=== PATIENT | female | born 1995 | race Caucasian/White ===

== ENCOUNTER 2017-02-11 02:45 | Emergency (ER) | payer OTHER ==
[2017-02-11 03:01] VITALS: BP 107/54; PULSE 94; TEMP 97.8; BMI 22.6
--- NOTE | 2017-02-11 03:23 | PDOC ---
History of Present Illness - General History Source: Patient Exam Limitations: No Limitations - History of Present Illness Initial Comments: 02/11/17 03:57 The patient is a 22 year old female with no significant PMH who presents to the emergency department with right sided groin and leg pain beginning approximately 1 month ago. The patient reports that she began to suddenly develop groin pain on her right side 3 weeks ago which is worsening and has begun to radiate down into her right leg. The patient reports being sometimes unable to sleep due to the groin pain. The patient denies regularly exercising but reports going to the gym for 2 days about 2 months ago. The patient states she works for the [employer] and is thus sitting for most of the day. The patient states that she went to her PCP in the last week and was prescribed Ibuprofen and Cyclobenzaprine. The patient denies taking any vitamin supplements. The patient denies chest pain, shortness of breath, headache and dizziness. Denies fever, chills, nausea, vomit, diarrhea and constipation. Denies dysuria, frequency, urgency and hematuria. Allergies: NKA Past surgical history: None reported. Social history: No reported cigarette, alcohol, or drug use. PCP: Dr. Paul <Nba Marino - Last Filed: 02/11/17 03:57> <Yolanda Siddiqi - Last Filed: 02/11/17 05:43> - General Chief Complaint: Pain Stated Complaint: LEG PAIN Time Seen by Provider: 02/11/17 03:10 Past History <Nba Marino - Last Filed: 02/11/17 03:57> - Suicide/Smoking/Psychosocial Hx Smoking History: Never smoked Have you smoked in the past 12 months: No Information on smoking cessation initiated: No Hx Alcohol Use: No Drug/Substance Use Hx: No <Yolanda Siddiqi - Last Filed: 02/11/17 05:43> - Past Medical History Allergies/Adverse Reactions: Allergies Allergy/AdvReac Type Severity Reaction Status Date / Time No Known Allergies Allergy Verified 02/11/17 03:01 Home Medications: Ambulatory Orders NK [No Known Home Medication] 02/11/17 Review of Systems - Review of Systems Able to Perform ROS?: Yes Comments:: 02/11/17 03:57 GENERAL/CONSTITUTIONAL: No fever or chills. No weakness. HEAD, EYES, EARS, NOSE AND THROAT: No change in vision. No ear pain or discharge. No sore throat. CARDIOVASCULAR: No chest pain or shortness of breath. RESPIRATORY: No cough, wheezing, or hemoptysis. GASTROINTESTINAL: No nausea, vomiting, diarrhea or constipation. GENITOURINARY: No dysuria, frequency, or change in urination. MUSCULOSKELETAL: (+) Right sided groin pain. (+) Right sided leg pain. No joint pain. No neck or back pain. SKIN: No rash NEUROLOGIC: No headache, vertigo, loss of consciousness, or change in strength/ sensation. ENDOCRINE: No increased thirst. No abnormal weight change. HEMATOLOGIC/LYMPHATIC: No anemia, easy bleeding, or history of blood clots. ALLERGIC/IMMUNOLOGIC: No hives or skin allergy. <Nba Marino - Last Filed: 02/11/17 03:57> *Physical Exam - Vital Signs Last Vital Signs Temp Pulse Resp BP Pulse Ox 97.8 F 94 H 20 107/54 100 02/11/17 02:59 02/11/17 02:59 02/11/17 02:59 02/11/17 02:59 02/11/17 02:59 - Physical Exam Comments: 02/11/17 03:59 GENERAL: Awake, alert, and fully oriented, in no acute distress HEAD: No signs of trauma EYES: PERRLA, EOMI, sclera anicteric, conjunctiva clear ENT: Auricles normal inspection, hearing grossly normal, nares patent, oropharynx clear without exudates. Moist mucosa NECK: Normal ROM, supple, no lymphadenopathy, JVD, or masses LUNGS: Breath sounds equal, clear to auscultation bilaterally. No wheezes, and no crackles HEART: Regular rate and rhythm, normal S1 and S2, no murmurs, rubs or gallops ABDOMEN: Soft, nontender, normoactive bowel sounds. No guarding, no rebound. No masses EXTREMITIES: (+) Limited RLE ROM due to pain. No edema. No clubbing or cyanosis. No cords, erythema, or tenderness NEUROLOGICAL: Cranial nerves II through XII grossly intact. Normal speech, normal gait. SKIN: Warm, Dry, normal turgor, no rashes or lesions noted. <Nba Marino - Last Filed: 02/11/17 03:57> - Vital Signs Last Vital Signs Temp Pulse Resp BP Pulse Ox 97.8 F 94 H 20 107/54 100 02/11/17 02:59 02/11/17 02:59 02/11/17 02:59 02/11/17 02:59 02/11/17 02:59 <Yolanda Siddiqi - Last Filed: 02/11/17 05:43> ED Treatment Course - LABORATORY CBC & Chemistry Diagram: 02/11/17 04:00 02/11/17 04:00 <Yolanda Siddiqi - Last Filed: 02/11/17 05:43> Medical Decision Making - Medical Decision Making 02/11/17 05:42 Patient Name: PK PEARL THIS IS A PRELIMINARY REPORT [facility] DATE OF SERVICE: 2017-02-11 05:18:45 IMAGES: [id number] EXAM: CT LUMBAR SPINE HISTORY: Right inner thigh pain COMPARISON: None. FINDINGS: The lumbar vertebrae are normally aligned. No fracture or destructive bone lesion. At L5-S1, there is a disc bulge with centrally herniated component. No other disc abnormalities are identified. Soft tissues are normal <Yolanda Siddiqi - Last Filed: 02/11/17 05:43> *DC/Admit/Observation/Transfer - Attestations Scribe Attestion: 02/11/17 04:00 Documentation prepared by Nba Marino, acting as medical device engineer for Yolanda Siddiqi MD. <Nba Marino - Last Filed: 02/11/17 03:57> - Discharge Dispostion Admit: No <Yolanda Siddiqi - Last Filed: 02/11/17 05:43> Diagnosis at time of Disposition: Muscle soreness, Thigh pain - Discharge Dispostion Disposition: HOME Condition at time of disposition: Stable - Referrals Referrals: Maeve Paul MD [Primary Care Provider] - - Patient Instructions Printed Discharge Instructions: DI for Leg Pain, DI for Musculoskeletal Pain - Post Discharge Activity
[2017-02-11 04:13] LABS: BASOPHIL 0.5 % (0-2.0); EOSINOPHIL 2.1 % (0-4.5); MCH 30.3 pg (25.7-33.7); MCHC 33.4 g/dl (32.0-36.0); MEAN CELL VOLUME 90.7 fl (80-96); MEAN PLT VOLUME 7.9 fl (7.5-11.1); NEUTROPHILS 58.2 % (42.8-82.8); PLATELET COUNT 266 K/MM3 (134-434); RDW 12.6 % (11.6-15.6); WHITE BLOOD COUNT 6.1 K/mm3 (4.0-10.0)
[2017-02-11 04:18] LABS: URINE APPEARANCE CLEAR; URINE BILIRUBIN NEGATIVE (NEGATIVE); URINE BLOOD 1+ (NEGATIVE); URINE COLOR LTYELLOW; URINE GLUCOSE (UA) NEGATIVE (NEGATIVE); URINE KETONE NEGATIVE (NEGATIVE); URINE NITRITE NEGATIVE (NEGATIVE); URINE PROTEIN NEGATIVE (NEGATIVE); URINE UROBILINOGEN NEGATIVE mg/dL (0.2-1.0)
[2017-02-11 04:37] LABS: ALBUMIN 3.9 g/dl (3.4-5.0); ALK PHOS 56 U/L (45-117); ANION GAP 8 (8-16); BILIRUBIN,TOTAL 0.5 mg/dL (0.2-1.0); CALCIUM 8.5 mg/dL (8.5-10.1); CO2 26 mmol/L (21-32); CREATININE 0.6 mg/dL (0.55-1.02); GLUCOSE,RANDOM 82 mg/dL (74-106); SGOT/AST 16 U/L (15-37); SGPT/ALT 24 U/L (12-78); TOT PROT 7.2 g/dl (6.4-8.2)
[2017-02-11 04:39] LABS: URINE BACTERIA RARE /hpf (NONE SEEN); URINE MUCUS RARE; URINE RBC 5; URINE WBC 3
[2017-02-11 04:42] LABS: CPK 161 IU/L (26-192)
[2017-02-11 12:34] LABS: URINE LEUK ESTERASE Negative (NEGATIVE)
== END 2017-02-11 06:53 | disposition home or self-care (01) ==
LOC: JER 02:45
DX: M79.1 Myalgia (principal); M79.604 Pain in right leg; R10.31 Right lower quadrant pain
CPT/HCPCS: 36415; 72131-TC; 73552-TC-RT; 80053; 81003; 81015; 82550; 82553; 84703; 85025; 85651; 99282-25

== ENCOUNTER 2019-10-19 18:34 | Emergency (ER) | payer OTHER ==
[2019-10-19 18:41] VITALS: TEMP 98.7; BMI 24.5
--- NOTE | 2019-10-19 18:42 | PDOC ---
Rapid Medical Evaluation Chief Complaint: Sore Throat Time Seen by Provider: 10/19/19 18:39 Medical Evaluation: Allergies Allergy/AdvReac Type Severity Reaction Status Date / Time No Known Allergies Allergy Verified 02/11/17 03:01 10/19/19 18:39 The patient is a 24 y/o F presents to the ER with sores to her vaginal area and a sore throat. She states the sores started 4 days ago. She endorses having a fever of 101 yesterday. She also notes her throat started to bother her two days ago. She states she noticed spots on the back of her throat. Denies diff swallowing. States took Tylenol two hours prior to arrival Exam: mildly erythematous tonsils. Defer exam Orders: strep; urine Pt to proceed to the ER for further evaluation Discharge Disposition - Diagnosis Vaginal pain - Referrals Referrals: Maeve Paul MD [Primary Care Provider] - - Patient Instructions - Post Discharge Activity
[2019-10-19 19:21] LABS: EPI CELLS >36 /uL (0-25.1); HCG,QUALITATIVE URINE Negative; HYALINE CASTS 5 /uL (0-3.1); PH,URINE 5.5 (5.0-8.0); URINE APPEARANCE CLOUDY; URINE BACTERIA 1671 /uL (0-1359); URINE BILIRUBIN NEGATIVE (NEGATIVE); URINE COLOR DK YELLOW; URINE GLUCOSE (UA) NEGATIVE (NEGATIVE); URINE KETONE 1+ (NEGATIVE); URINE LEUK ESTERASE 2+ (NEGATIVE); URINE NITRITE NEGATIVE (NEGATIVE); URINE PROTEIN 1+ (NEGATIVE); URINE RBC 48 /uL (0-23.9); URINE WBC 1503 /uL (0-25.8)
[2019-10-19] MEDS ORDERED: valACYclovir HCL 1000 MG TABLET PO ONE (19:52)
[2019-10-19] MEDS ORDERED: AZITHROMYCIN 500 MG TABLET PO ONE (20:00)
[2019-10-19] MEDS ORDERED: valACYclovir HCL 500 MG TABLET (FP) ONE ×2 (20:03→20:06)
[2019-10-19] MEDS ORDERED: LIDOCAINE HCL 1%, 10 MG/ML (20ML VIAL) ONE (20:04)
[2019-10-19] MEDS ORDERED: cefTRIAXone SODIUM 1 GM VIAL ONE ×2 (20:04→20:06)
[2019-10-19] MEDS ORDERED: AZITHROMYCIN 250 MG TABLET ONE ×2 (20:04→20:06)
--- NOTE | 2019-10-19 20:25 | PDOC ---
History of Present Illness - General Chief Complaint: Sore Throat Stated Complaint: SORETHROAT Time Seen by Provider: 10/19/19 18:39 History Source: Patient Exam Limitations: No Limitations - History of Present Illness Initial Comments: 10/19/19 20:18 Patient is a 24-year-old female with no past medical history here with complaints of vaginal and labial ulcers and sore throat x3 days. Patient states she went to [facility] and was using tampons thought it might be related to her tampons however the pain has persisted. Describes the pain as sharp [id number] 10 out of 10 pain in the vaginal area which was associated with fever yesterday. She reports white patches on her throat. She sexually active with one partner for the last several months without condoms, with vaginal and oral sex. PMD: Dr. Sandoval PMHX: as above PSOCHX: occ etoh, neg durg, cig ALL: NKDA GENERAL/CONSTITUTIONAL: [No fever or chills. No weakness. No weight change.] HEAD, EYES, EARS, NOSE AND THROAT: [No change in vision. No ear pain or discharge. No sore throat.] CARDIOVASCULAR: [No chest pain or shortness of breath.] RESPIRATORY: [No cough, wheezing, or hemoptysis.] GASTROINTESTINAL: [No nausea, vomiting, diarrhea or constipation. No rectal bleeding.] GENITOURINARY: [No dysuria, frequency, or change in urination.] MUSCULOSKELETAL: [No joint or muscle swelling or pain. No neck or back pain.] SKIN AND BREASTS: [No rash or easy bruising.] NEUROLOGIC: [No headache, vertigo, loss of consciousness, or loss of sensation.] PSYCHIATRIC: [No depression or anxiety.] ENDOCRINE: [No increased thirst. No abnormal weight change.] HEMATOLOGIC/LYMPHATIC: [No anemia, easy bleeding, or history of blood clots.] ALLERGIC/IMMUNOLOGIC: [No hives or skin allergy. No latex allergy.] GENERAL: [The patient is awake, alert, and fully oriented, in no acute distress.] HEAD: [Normal with no signs of trauma.] EYES: [Pupils equal, round and reactive to light, extraocular movements intact, sclera anicteric, conjunctiva clear.] ENT: [Ears normal, nares patent, oropharynx with exudates. Moist mucous membranes. NECK: [Normal range of motion, supple without lymphadenopathy, JVD, or masses.] LUNGS: [Breath sounds equal, clear to auscultation bilaterally. No wheezes, and no crackles.] HEART: [Regular rate and rhythm, normal S1 and S2 without murmur, rub.] ABDOMEN: [Soft, nontender, normoactive bowel sounds. No guarding, no rebound. No masses.] PELVIC: (+) Multi tender ulcerative lesions on the labia minora and in the vaginal vault. Small amount of thin yellow discharge in the vault EXTREMITIES: [Normal range of motion, no edema. No clubbing or cyanosis. No cords, erythema, or tenderness.] NEUROLOGICAL: [Cranial nerves II through XII grossly intact. Normal speech, normal gait.] PSYCH: [Normal mood, normal affect.] SKIN: [Warm, Dry, normal turgor, no rashes or lesions noted.] Past History - Medical History Allergies/Adverse Reactions: Allergies Allergy/AdvReac Type Severity Reaction Status Date / Time No Known Allergies Allergy Verified 10/19/19 18:41 Home Medications: Ambulatory Orders Valacyclovir HCl [Valtrex] 1,000 mg PO BID #14 tablet 10/19/19 COPD: No - Psycho-Social/Smoking History Smoking History: Never smoked Have you smoked in the past 12 months: No - Substance Abuse Hx (Audit-C & DAST Scrn) How often the patient has a drink containing alcohol: Never Score: In Men: 4 or > Positive; In Women: 3 or > Positive: 0 Screen Result (Pos requires Nsg. Audit-10AR): Negative *Physical Exam - Vital Signs Last Vital Signs Temp Pulse Resp BP Pulse Ox 98.7 F 102 H 18 105/71 99 10/19/19 18:39 10/19/19 18:39 10/19/19 18:39 10/19/19 18:39 10/19/19 18:39 ED Treatment Course - ADDITIONAL ORDERS Additional order review: Laboratory Results 10/19/19 19:00 Urine Color Dk yellow Urine Appearance Cloudy Urine pH 5.5 Ur Specific [place] 1.040 H Urine Protein 1+ H Urine Glucose (UA) Negative Urine Ketones 1+ H Urine Blood 1+ H Urine Nitrite Negative Urine Bilirubin Negative Urine Urobilinogen 1.0 Ur Leukocyte Esterase 2+ H Urine WBC (Auto) 1503 Urine RBC (Auto) 48 Urine Casts (Auto) 5 U Pathogenic Cast Auto None seen U Epithel Cells (Auto) >36 Urine Bacteria (Auto) 1671 Urine HCG, Qual Negative - Medications Given in the ED: ED Medications Discontinued Medications Generic Name Dose Route Start Last Admin Trade Name Mikal PRN Reason Stop Dose Admin Azithromycin 1,000 mg 10/19/19 20:00 10/19/19 20:16 Zithromax PO 10/19/19 20:01 1,000 mg ONCE ONE Administration Ceftriaxone Sodium 250 mg 10/19/19 20:00 10/19/19 20:16 Rocephin - IM 10/19/19 20:01 250 mg ONCE ONE Administration Valacyclovir HCl 1,000 mg 10/19/19 19:52 10/19/19 20:16 Valtrex - PO 10/19/19 19:53 1,000 mg ONCE ONE Administration Medical Decision Making - Medical Decision Making 10/19/19 20:18 Patient is a 24-year-old female with no past medical history here with complaints of vaginal and labial ulcers and sore throat x3 days. Patient states she went to [place] and was using tampons thought it might be related to her tampons however the pain has persisted. Describes the pain as sharp [id number] 10 out of 10 pain in the vaginal area which was associated with fever yesterday. She reports white patches on her throat. She sexually active with one partner for the last several months without condoms, with vaginal and oral sex. Symptoms suspicious for herpetic lesions. We will send off labs HSV swabs of the throat and the labia, GC chlamydia Will treat with Rocephin and Zithromax and Valtrex Repeat pulse 80 I discussed the physical exam findings, ancillary test results and final diagnoses with the patient. I answered all of the patient's questions. The patient was satisfied with the care received and felt comfortable with the discharge plan and treatment plan. The Patient agrees to follow up with the primary care physician within 24-72 hours. Discharge - Discharge Information Problems reviewed: Yes Clinical Impression/Diagnosis: Vaginal pain, Vaginal ulceration, Sore throat Condition: Stable Disposition: HOME - Follow up/Referral Referrals: Maeve Paul MD [Primary Care Provider] - - Patient Discharge Instructions Patient Printed Discharge Instructions: DI for Viral Pharyngitis, DI for Genital Herpes Additional Instructions: Your Discharge Instructions: You must call primary care physician within 24 hours to arrange follow-up. Return to the Emergency Department with any new, persistent or worsening symptoms, for fever, chills, SOB, dizziness or any other concerning changes that may occur. Follow-up with [facility]. You may call [phone] for your results. - Post Discharge Activity
[2019-10-19] MEDS ORDERED: ONDANSETRON 4 MG/2 ML VIAL IM ONE (20:46)
[2019-10-19] MEDS ORDERED: ONDANSETRON *ODT* 4 MG TABLET ONE (20:50)
[2019-10-19] MEDS ORDERED: ONDANSETRON *ODT* 4 MG TABLET SL ONE (21:05)
[2019-10-19 23:14] VITALS: BP 117/73; PULSE 93
== END 2019-10-19 21:30 | disposition home or self-care (01) ==
LOC: JERFT 18:34
PROC: 3E02329 Introduction of Other Anti-infective into Muscle, Percutaneous Approach (ICD-10-PCS; principal; 2019-10-19)
PROC: 3E023GC Introduction of Other Therapeutic Substance into Muscle, Percutaneous Approach (ICD-10-PCS; 2019-10-19)
DX: R10.2 Pelvic and perineal pain (principal); J02.9 Acute pharyngitis, unspecified
CPT/HCPCS: 36415; 81003; 84703; 87070; 87086; 87255; 87491; 87591; 87880; 99284-25; Q0162

== ENCOUNTER 2021-05-24 01:25 | Emergency (ER) | payer OTHER ==
[2021-05-24 01:38] VITALS: BP 121/82; PULSE 83; TEMP 97.6; BMI 26.4
[2021-05-24] MEDS ORDERED: ACETAMINOPHEN 1000 MG/100 ML BAG IVPB ONE (02:13)
[2021-05-24 02:42] LABS: BASO % 0.1 % (0-2.0); EOS % 0.5 % (0-4.5); EPI CELLS >36 /uL (0-25.1); HYALINE CASTS 15 /uL (0-3.1); LYMPH % 16.1 % (8-40); MCH 30.3 pg (25.7-33.7); MCHC 33.4 g/dl (32.0-36.0); MEAN CELL VOLUME 90.9 fl (80-96); MEAN PLT VOLUME 8.5 fl (7.5-11.1); MONO % 6.3 % (3.8-10.2); PLATELET COUNT 261 10^3/uL (134-434); RBC 4.29 M/mm3 (3.60-5.2); RDW 13.2 % (11.6-15.6); URINE APPEARANCE CLOUDY; URINE BACTERIA 731 /uL (0-1359); URINE BILIRUBIN NEGATIVE (NEGATIVE); URINE COLOR DK YELLOW; URINE GLUCOSE (UA) NEGATIVE (NEGATIVE); URINE KETONE TRACE (NEGATIVE); URINE LEUK ESTERASE TRACE (NEGATIVE); URINE NITRITE NEGATIVE (NEGATIVE); URINE PROTEIN 1+ (NEGATIVE); URINE RBC 15 /uL (0-23.9); URINE WBC 253 /uL (0-25.8); WHITE BLOOD COUNT 11.8 K/mm3 (4.0-10.0)
[2021-05-24 02:47] LABS: INR 1.1 (0.83-1.09); PROTHROMBIN TIME (PATIENT) 12.7 SEC (9.7-13.0)
[2021-05-24 02:50] LABS: ACTIVATED PTT 32.9 SECONDS (25.2-36.5)
[2021-05-24 03:02] LABS: ALBUMIN 3.9 g/dl (3.4-5.0); CALCIUM 8.9 mg/dL (8.5-10.1)
[2021-05-24 03:05] LABS: CREATININE 0.6 mg/dL (0.55-1.3)
[2021-05-24] MEDS ORDERED: ACETAMINOPHEN INJECTION 100 ML IVPB ONE (03:06)
[2021-05-24 03:07] LABS: BILIRUBIN,TOTAL 0.7 mg/dL (0.2-1)
[2021-05-24 10:41] LABS: YEAST NO SEEN (NEGATIVE)
== END 2021-05-24 04:19 | disposition home or self-care (01) ==
LOC: JER 01:25
PROC: 3E0333Z Introduction of Anti-inflammatory into Peripheral Vein, Percutaneous Approach (ICD-10-PCS; principal; 2021-05-24)
DX: N39.0 Urinary tract infection, site not specified (principal)
CPT/HCPCS: 36415; 74177-TC; 80053; 81003; 84703; 85025; 85610; 85730; 86850; 86900; 86901; 87086; 99285-25

== ENCOUNTER 2022-11-29 23:17 | Emergency (ER) | payer OTHER ==
[2022-11-29 23:30] VITALS: BP 115/73; PULSE 72; RESP 18; TEMP 98.8; BMI 27.3
[2022-11-30 00:22] LABS: EPI CELLS 13 /uL (0-25.1); HYALINE CASTS 2 /uL (0-3.1); URINE APPEARANCE CLEAR; URINE BACTERIA 177 /uL (0-1359); URINE BILIRUBIN NEGATIVE (NEGATIVE); URINE COLOR YELLOW; URINE GLUCOSE (UA) NEGATIVE (NEGATIVE); URINE KETONE TRACE (NEGATIVE); URINE LEUK ESTERASE 1+ (NEGATIVE); URINE NITRITE NEGATIVE (NEGATIVE); URINE PROTEIN NEGATIVE (NEGATIVE); URINE RBC 25 /uL (0-23.9); URINE UROBILINOGEN 0.2 mg/dL (0.2-1.0); URINE WBC 123 /uL (0-25.8)
[2022-11-30 00:38] LABS: HCG,QUALITATIVE URINE Negative
[2022-11-30] MEDS ORDERED: LIDOCAINE HCL 2% (20ML MULTI-DOSE VIAL) ONE (01:16)
== END 2022-11-30 01:46 | disposition home or self-care (01) ==
LOC: JER 23:17
PROC: 3E0233Z Introduction of Anti-inflammatory into Muscle, Percutaneous Approach (ICD-10-PCS; principal; 2022-11-30)
DX: N89.8 Other specified noninflammatory disorders of vagina (principal); R30.0 Dysuria; R10.31 Right lower quadrant pain; R10.32 Left lower quadrant pain; R10.2 Pelvic and perineal pain; N72 Inflammatory disease of cervix uteri
CPT/HCPCS: 36415; 81003; 84703; 87086; 87491; 87591; 99284-25